=== PATIENT | female | born 1980 | race Caucasian/White ===

== ENCOUNTER 2023-11-29 17:22 | Emergency (ER) | payer OTHER, SELFPAY ==
[2023-11-29] VITALS (7 sets, daily range): BP systolic 127–165; BP diastolic 78–100; PULSE 54–74; TEMP 36.6; O2SAT 97–100; BMI 41.5
[2023-11-29 17:51] LABS: Glucometer 114 mg/dL (74-106)
--- NOTE | 2023-11-29 18:05 | ECG_ITS ---
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
[2023-11-29] MEDS: 0.9 % SODIUM CHLORIDE 1,000 ML 1000 ML IV (18:13)
[2023-11-29] MEDS: MECLIZINE HCL 12.5 MG TABLET 25 MG PO (18:13)
[2023-11-29 18:16] LABS: Basophils Absolute Auto 0.1 10^3/uL (0.0-0.1); Eosinophils Absolute Auto 0.3 10^3/uL (0.0-0.7); Hematocrit 44.5 % (36.0-48.0); Hemoglobin 13.6 g/dL (12.0-16.0); Immature Granulocytes Abs Auto 0.02 10^3/uL (0.00-0.03); Immature Granulocytes Pct Auto 0.2 % (0.0-0.5); Lymphocytes Absolute Auto 4.4 10^3/uL (1.2-3.8); Lymphocytes Percent Auto 47.8 % (20.5-60.0); Mean Corpuscular HGB Conc 30.6 g/dL (29.9-35.2); Mean Corpuscular Hemoglobin 23.7 pg (26.7-34.0); Mean Corpuscular Volume 77.4 fL (81.0-99.0); Mean Platelet Volume 9.4 fL (9.5-13.5); Monocytes Absolute Auto 0.5 10^3/uL (0.3-0.8); Monocytes Percent Auto 4.8 % (1.7-12.0); Neutrophils Percent Auto 43.2 % (43.0-75.0); Platelet Count 289 10^3/uL (150-450); Red Blood Count 5.75 10^6/uL (4.20-5.40); Red Cell Distribution Width 15.5 % (11.0-15.0); White Blood Count 9.3 10^3/uL (4.0-11.0)
[2023-11-29 18:28] LABS: Alanine Aminotransferase 30 U/L (14-59); Albumin Globulin Ratio 0.9; Albumin Level 3.4 g/dL (3.4-5.0); Alkaline Phosphatase 100 U/L (46-116); Anion Gap 13.6; Aspartate Amino Transferase 12 U/L (15-37); BUN Creatinine Ratio 14.3; Bilirubin Total 0.4 mg/dL (0.2-1.0); Calcium 8.7 mg/dL (8.5-10.1); Carbon Dioxide 24.1 mmol/L (21.0-32.0); Chloride 107 mmol/L (98-107); Estimated GFR (African America >60 (>=60); Estimated GFR (Non-African Ame >60 (>=60); Globulin 3.6 g/dL; Glucose 107 mg/dL (74-106); Potassium 3.7 mmol/L (3.5-5.1); Sodium 141 mmol/L (136-145); Troponin I High Sensitivity 25.2 pg/mL (4.0-51.3)
--- NOTE | 2023-11-29 18:28 | ED.GENADUL1 ---
HPI HPI - General Adult General Chief complaint: Dizziness Stated complaint: Dizziness Time Seen by Provider: 11/29/23 17:28 Source: patient Mode of arrival: Wheelchair Limitations: no limitations History of Present Illness HPI narrative: Patient is a 43-year-old female who is presenting to the ER today with chief complaint of vertigo. Patient's symptoms started around 2 or 2:30 PM today. Patient stated that she was at work. Patient started feeling lightheaded, dizzy, the room spinning. Patient also felt like she was on a boat that was moving. Patient does have a history of vertigo. Patient stated that she has had vertigo for approximately 2 and half years. Patient had a close head injury 2 and half years ago where she hit her head, had a concussion, and has been having vertigo since. Patient has a PCP, she is never seen ENT, neurology, or been vestibular physical therapy or training. Patient has no chest pain or shortness of breath. No ear pain. No abdominal pain, she did have 1 episode of nausea and vomiting at work. Patient is here with her [id number]. Patient does not recall ever being given Antivert previously. No other acute complaints at this time. Patient has no recent traveling. Patient has no vision or hearing changes. Patient has no other acute complaints at this time. Patient has no strokelike signs or symptoms. All systems are negative except as noted/marked. All systems reviewed and otherwise negative. Nurses note and vital signs reviewed and patient is not hypoxic. General: The patient appears well and in no apparent distress. Patient is resting comfortably on cart. Patient is not toxic, lethargic, or listless Skin: Warm, dry, no pallor noted. There is no rash noted. No petechiae, purpura. Head: Normocephalic, atraumatic Eye: Normal conjunctiva, no drainage, EOMI. PERRL, patient has no vertical or horizontal nystagmus. Ears, Nose, Mouth, and Throat: oral mucosa is moist. Patient's bilateral TM shows no erythema, perforation or bulging. Nares patent. Mouth without vesicles. Cardiovascular: Regular Rate and Rhythm, no murmur, gallop, rub Respiratory: Patient is in no distress, no accessory muscle use, lungs are clear to auscultation, no wheezing, rales or rhonchi Back: non-tender, no CVA tenderness bilaterally to percussion. No CT LS midline pain GI: no tenderness to palpation, no masses appreciated. No rebound, guarding, or rigidity noted. No distention Musculoskeletal: Patient has full range of motion of all of the extremities, no motor, sensory, or focal neurological deficits. Neurological: A&O x4, normal speech. NIH is 0 Psychiatric: Cooperative Related Data Previous Rx's ?Medication ?Instructions ?Recorded meclizine 25 mg chewable tablet 25 mg PO TID PRN dizziness or 11/29/23 (Antivert) vertigo #7 tabs ondansetron 4 mg disintegrating 4 mg PO Q4H PRN nausea and 11/29/23 tablet vomiting 3 days #6 tabs Allergies Allergy/AdvReac Type Severity Reaction Status Date / Time bupropion Allergy Mild Rash Verified 11/29/23 17:28 [From Wellbutrin SR] Opioid HPI Opioid Management Most Recent Opioid Data: Last Pain Scale 7 11/29/23 19:17 Last MAR Pain Assessment 11/29/23 19:17 Exam Constitutional Vital Signs, click to edit/add: Last Vital Signs Temp 97.9 F 11/29/23 17:28 Pulse 54 L 11/29/23 19:27 Resp 14 11/29/23 19:27 BP 165/88 H 11/29/23 19:27 Pulse Ox 100 11/29/23 19:27 O2 Del Method Room Air 11/29/23 19:27 Course Vital Signs Vital signs: Vital Signs Temperature 97.9 F 11/29/23 17:28 Pulse Rate 74 11/29/23 17:28 Respiratory Rate 16 11/29/23 17:28 Blood Pressure 156/100 H 11/29/23 17:28 Pulse Oximetry 97 11/29/23 17:28 Oxygen Delivery Method Room Air 11/29/23 17:28 Temperature 97.9 F 11/29/23 17:28 Pulse Rate 54 L 11/29/23 19:27 Respiratory Rate 14 11/29/23 19:27 Blood Pressure 165/88 H 11/29/23 19:27 Pulse Oximetry 100 11/29/23 19:27 Oxygen Delivery Method Room Air 11/29/23 19:27 Medical Decision Making MDM Narrative Medical decision making narrative: Patient feels better after Antivert was given along with IV fluids. Patient stated she had a mild Right frontal headache at discharge, she was given IV Toradol. Patient lab work shows no acute changes. Patient will be sent home with a prescription for Antivert and Zofran to use if needed. Patient was educated on following up with ENT along with following up with PCP for referral to vestibular training if needed. Patient's [id number] at bedside will be driving her home. Lab Data Lab results reviewed: Yes I reviewed the patient's lab results Labs: Lab Results 11/29/23 11/29/23 Range/Units 17:36 17:50 WBC 9.3 (4.0-11.0) 10^3/uL RBC 5.75 H (4.20-5.40) 10^6/uL Hgb 13.6 (12.0-16.0) g/dL Hct 44.5 (36.0-48.0) % MCV 77.4 L (81.0-99.0) fL MCH 23.7 L (26.7-34.0) pg MCHC 30.6 (29.9-35.2) g/dL RDW 15.5 H (11.0-15.0) % Plt Count 289 (150-450) 10^3/uL MPV 9.4 L (9.5-13.5) fL Neut % (Auto) 43.2 (43.0-75.0) % Lymph % (Auto) 47.8 (20.5-60.0) % Pratt % (Auto) 4.8 (1.7-12.0) % Eos % (Auto) 3.0 (0.9-7.0) % Baso % (Auto) 1.0 (0.2-2.0) % Neut # (Auto) 4.0 (1.4-6.5) 10^3/uL Lymph # (Auto) 4.4 H (1.2-3.8) 10^3/uL Pratt # (Auto) 0.5 (0.3-0.8) 10^3/uL Eos # (Auto) 0.3 (0.0-0.7) 10^3/uL Baso # (Auto) 0.1 (0.0-0.1) 10^3/uL Abs Immat Gran (auto) 0.02 (0.00-0.03) 10^3/uL Imm/Tot Granulo (auto) 0.2 (0.0-0.5) % Sodium 141 (136-145) mmol/L Potassium 3.7 (3.5-5.1) mmol/L Chloride 107 (98-107) mmol/L Carbon Dioxide 24.1 (21.0-32.0) mmol/L Anion Gap 13.6 BUN 14.0 (7.0-18.0) mg/dL Creatinine 0.98 (0.55-1.02) mg/dL Est GFR ( Amer) >60 (>=60) Est GFR (Non-Af Amer) >60 (>=60) BUN/Creatinine Ratio 14.3 Glucose 107 H (74-106) mg/dL Calcium 8.7 (8.5-10.1) mg/dL Total Bilirubin 0.4 (0.2-1.0) mg/dL AST 12 L (15-37) U/L ALT 30 (14-59) U/L Alkaline Phosphatase 100 (46-116) U/L Troponin I High Sens 25.2 (4.0-51.3) pg/mL Total Protein 7.0 (6.4-8.2) g/dL Albumin 3.4 (3.4-5.0) g/dL Globulin 3.6 g/dL Albumin/Globulin Ratio 0.9 POC Glucose 114 H (74-106) mg/dL ECG Data Attestation: I personally reviewed and interpreted this ECG as follows: (EKG interpretation. Normal sinus rhythm at 69 beats a minute. Normal axis deviation. No acute ST elevation, no acute ectopy. QTc of 419. ) Discharge Plan Discharge Stand Alone Forms: Portal Instructions Chief Complaint: Dizziness Clinical Impression: Vertigo, Nausea & vomiting Patient Disposition: Home, Self-Care Time of Disposition Decision: 18:54 Condition: Fair Mode of Transportation: Private Vehicle Prescriptions / Home Meds: New ondansetron 4 mg tablet,disintegrating 4 mg PO Q4H PRN (Reason: nausea and vomiting) 3 Days Qty: 6 0RF meclizine [Antivert] 25 mg tablet,chewable 25 mg PO TID PRN (Reason: dizziness or vertigo) Qty: 7 0RF Print Language: [place] Instructions: Vertigo (ED), Acute Nausea and Vomiting (ED), Lightheadedness (ED) Additional Instructions: Follow-up with ENT. You may need vestibular training which can be ordered by your PCP to help with acute on chronic vertigo. Use Antivert as needed for vertigo. Use Zofran as needed for nausea and vomiting. Increase fluids. Follow-up with PCP. ENT: Name and number has been given to you for referral if needed Referrals: Neema Doll MD [Physician] - 1 week MENG JACOBSON [Primary Care Provider] - 1 week Discharge Date/Time: 11/29/23 19:31
[2023-11-29] MEDS: KETOROLAC TROMETHAMINE 30 MG/ML VIAL 15 MG IVP (19:17)
== END 2023-11-29 19:31 | disposition home or self-care (01) ==
PROVIDERS: Emergency Provider Emergency Medicine; PCP Family Medicine
DX: R42 Dizziness and giddiness (principal); R11.2 Nausea with vomiting, unspecified
CPT/HCPCS: 36415; 36416; 80053; 82948; 84484; 85025; 93005; 96361; 96374; 99285